=== PATIENT | female | born 2000 | race Caucasian/White ===

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

== ENCOUNTER 2019-05-02 04:47 | Emergency (ER) | payer BC, OTHER ==
[~2019-05-02] VITALS: Ht 170.2 cm; Wt 57.3 kg
[2019-05-02 04:48] VITALS: BP 111/76
--- NOTE | 2019-05-02 05:16 | NUR ---
PT IN GOWN IN [facility]. PT ATTACHED TO VS MACHINES. VSS AT THIS TIME. PT EDUCATED ON ER PROCESS AND POC AND VERBALIZES UNDERSTANDING. PT PROVIDED WITH WARM BLANKET. CALL LIGHT IS WITHIN REACH. URINE COLLECTED AND SENT TO LAB. AWAITING ERP FOR PT HISTORY AND ASSESSMENT.
[2019-05-02] MEDS ORDERED: PHENAZOPYRIDINE 200 MG TABLET ONE (05:25)
[2019-05-02] MEDS ORDERED: PHENAZOPYRIDINE 200 MG TABLET PO ONE (05:30)
[2019-05-02 05:34] LABS: CULTURE INDICATED? YES; MICROSCOPIC INDICATED
[2019-05-02] MEDS ORDERED: CEFDINIR 300 MG CAPSULE PO ONE (06:00)
--- NOTE | 2019-05-02 06:10 | NUR ---
pt d/c with d/c summary and scripts. all questions answered. pt ambulates to registration desk with steady gait for d/c home with father. pt denies any other needs pertaining to this visit.
== END 2019-05-02 06:17 | disposition home or self-care (01) ==
LOC: ED 05:26
DX: N30.00 Acute cystitis without hematuria (principal)
CPT/HCPCS: 81001; 87086; 99283